=== PATIENT | female | born 1965 | race African-American/Black ===

== ENCOUNTER → 2020-07-23 13:40 | Outpatient (CLI) | payer BC | END | disposition home or self-care (01) | LOC: D.US 07-21 08:00 | PROVIDERS: ATTEND Family Medicine | DX: R22.2 Localized swelling, mass and lump, trunk (principal) ==

== ENCOUNTER → 2020-07-30 14:43 | Outpatient (CLI) | payer BC | END | disposition home or self-care (01) | LOC: D.MRI 14:43 | PROVIDERS: ATTEND Family Medicine | DX: R22.32 Localized swelling, mass and lump, left upper limb (principal) ==